=== PATIENT | male | born 1950 | race Caucasian/White ===

== ENCOUNTER 2019-06-08 09:57 | Observation (INO) | payer MEDICARE ==
[~2019-06-08] VITALS: Ht 177.8 cm; Wt 86.4 kg
[2019-06-08] MEDS ORDERED: SODIUM CHLORIDE 0.9% 1,000 ML IV SCH ×2 (10:27→12:00)
[2019-06-08 10:39] VITALS: BP 144/72
[2019-06-08] MEDS ORDERED: ASPI-496 PO (10:47)
[2019-06-08] MEDS ORDERED: FINA5TAB4 PO (10:47)
[2019-06-08] MEDS ORDERED: ATOR40TA PO (10:47)
[2019-06-08] MEDS ORDERED: TURM1CAP PO (10:47)
[2019-06-08] MEDS ORDERED: PLEASE ENTER HEIGHT AND WEIGHT MC SCH (11:00)
[2019-06-08 11:06] LABS: BASOPHILS # (AUTO) 0.03 x10^3/uL (0-0.1); BASOPHILS % (AUTO) 0 % (0-1); EOSINOPHILS # (AUTO) 0.13 x10^3/uL (0-0.4); EOSINOPHILS % (AUTO) 2 % (1-7); LYMPHOCYTES # (AUTO) 1.54 x10^3/uL (1-3.4); LYMPHOCYTES % (AUTO) 19 % (22-44); MD NO; MEAN CORPUSCULAR HGB CONC 33.8 g/dL (33.2-36.2); MEAN CORPUSCULAR VOLUME 91.7 fL (81-97); MEAN PLATELET VOLUME 9.6 fL (7.4-10.4); MONOCYTES % (AUTO) 9 % (2-9); NEUTROPHILS # (AUTO) 5.79 x10^3/uL (1.8-6.8); NEUTROPHILS % (AUTO) 71 % (42-75); PLATELET COUNT 221 x10^3/uL (130-400); RED BLOOD COUNT 5.41 x10^6/uL (4.38-5.82); RED CELL DISTRIBUTION WIDTH 13.1 % (9.4-14.8)
[2019-06-08] MEDS ORDERED: OMEG1CAP39 PO (11:10)
[2019-06-08] MEDS ORDERED: ASPIRIN 325 MG TABLET EC ONE (11:12)
[2019-06-08 11:27] LABS: ANION GAP 8 mmol/L (5-15); CALCIUM 8.8 mg/dL (8.5-10.1); CHLORIDE 111 mmol/L (98-107); CREATININE 0.93 mg/dL (0.7-1.3)
[2019-06-08] MEDS ORDERED: ASPIRIN 325 MG TABLET EC PO ONE (12:00)
[2019-06-08] MEDS ORDERED: CEFAZOLIN PMX 1GM/50ML 50 ML IVPB ONE (12:00)
[2019-06-08] MEDS ORDERED: FENTANYL PF 250 MCG/5ML ONE (12:26)
[2019-06-08] MEDS ORDERED: MIDAZOLAM 1 MG/ML, 5ML ONE ×2 (12:26→13:32)
[2019-06-08] MEDS ORDERED: CEFAZOLIN PMX 1GM/50ML 50 ML ONE (12:26)
[2019-06-08] MEDS ORDERED: HEPARIN 1,000 UNITS/ML, 10ML ONE (12:26)
[2019-06-08] MEDS ORDERED: BIVALIRUDIN 250 MG ONE (12:26)
[2019-06-08] MEDS ORDERED: CEFAZOLIN 1,000 MG ONE (12:27)
[2019-06-08] MEDS ORDERED: LIDOCAINE 2%, 20ML ONE (12:27)
[2019-06-08] MEDS ORDERED: VERAPAMIL 2.5 MG/ML, 2ML ONE (12:27)
[2019-06-08] MEDS ORDERED: FENTANYL PF 100 MCG/2ML ONE (13:32)
[2019-06-08] MEDS ORDERED: DIPHENHYDRAMINE 50 MG/ML, 1ML ONE (13:50)
[2019-06-08 15:04] VITALS: BP 157/86
[2019-06-08] MEDS ORDERED: HYDROcodone/APAP 5/325 TABLET PO PRN (16:30)
[2019-06-08] MEDS ORDERED: ACETAMINOPHEN 325 MG TABLET PO PRN (16:30)
[2019-06-08] MEDS ORDERED: HOLD MEDICATION MC PRN (16:30)
[2019-06-08] MEDS ORDERED: ONDANSETRON 2MG/ML, 2ML IV PRN (16:30)
[2019-06-08 20:00] VITALS: BP 143/84
[2019-06-08] MEDS: SODIUM CHLORIDE FLUSH 10ML SYR IVF SCH (20:08)
[2019-06-08] MEDS ORDERED: ATORVASTATIN 20 MG TABLET PO SCH (21:00)
[2019-06-08 22:51] VITALS: BP 151/83
[2019-06-08] MEDS ORDERED: NITROGLYCERIN 0.4 MG BOTTLE (25 TABS) SL PRN (23:30)
[2019-06-08] MEDS ORDERED: NITROGLYCERIN 0.4 MG/SPRAY SL PRN (23:30)
[2019-06-08] MEDS: CEFAZOLIN PMX 1GM/50ML 50 ML IVPB SCH (23:51)
[2019-06-09 01:39] VITALS: BP 149/85
[2019-06-09 06:50] VITALS: BP 147/82
[2019-06-09] MEDS: CEFAZOLIN PMX 1GM/50ML 50 ML IVPB SCH (08:31)
[2019-06-09] MEDS: SODIUM CHLORIDE FLUSH 10ML SYR IVF SCH (08:32)
[2019-06-09] MEDS ORDERED: OMEGA-3/FISH OIL CAPSULE PO SCH (09:00)
[2019-06-09] MEDS ORDERED: ASPIRIN 81 MG TABLET EC PO SCH (09:00)
[2019-06-09] MEDS ORDERED: FINASTERIDE 5 MG TABLET PO SCH (09:00)
== END 2019-06-09 12:12 | disposition home or self-care (01) ==
LOC: CACL 09:57 → ORIP 13:38 → 5SO 15:00
PROVIDERS: ADMIT Internal Medicine Cardiovascular Disease; ATTEND Internal Medicine Cardiovascular Disease
DX: I44.1 Atrioventricular block, second degree (principal); I25.10 Atherosclerotic heart disease of native coronary artery without angina pectoris; Z79.82 Long term (current) use of aspirin; Z79.899 Other long term (current) drug therapy
CPT/HCPCS: 33208; 36415; 71045; 71046; 80048; 85025; 93005; 93458; 96365; 96366; 99156; 99157; C1769; C1779; C1785; C1892; C1894; G0378; J0690; J1200; J1644; J2250; J3010; J3490; Q9967; J0583